=== PATIENT | male | born 1970 | race American Indian/Alaskan Native ===

== ENCOUNTER 2017-01-08 04:58 | Emergency (ER) | payer OTHER ==
[2017-01-08 06:44] LABS: Alanine Aminotransferase 45 units/L (7-56); Albumin 4.4 g/dL (3.9-5); Albumin/Globulin Ratio 1.6 %; Alkaline Phosphatase 80 units/L (35-129); Anion Gap 17 mmol/L; BUN/Creatinine Ratio 14.44; Basophils % (Auto) 0.3 % (0.0-1.8); Bilirubin,Total 0.9 mg/dL (0.1-1.2); Blood Urea Nitrogen 13 mg/dL (9-20); Calcium 9.4 mg/dL (8.4-10.2); Carbon Dioxide 23 mmol/L (22-30); Chloride 97.8 mmol/L (98-107); Eosinophils % (Auto) 7.3 % (0.0-4.3); Glucose 280 mg/dL (75-100); Hematocrit 45.5 % (35.5-45.6); Hemoglobin 15.3 gm/dl (11.8-15.2); Magnesium 1.9 mg/dL (1.7-2.3); Mean Corpuscular HGB Conc 34 % (32-34); Mean Corpuscular Hemoglobin 28 pg (28-32); Mean Corpuscular Volume 82 fl (84-94); Platelet Count 183 K/mm3 (140-440); Red Blood Count 5.52 M/mm3 (3.65-5.03); Red Cell Distribution Width 13.4 % (13.2-15.2); Sodium 134 mmol/L (137-145); Total Protein 7.1 g/dL (6.3-8.2); White Blood Count 7.9 K/mm3 (4.5-11.0)
[2017-01-08 06:47] LABS: Urine Drugs of Abuse Note Disclamer
[2017-01-08 07:09] LABS: Bilirubin,Urine NEG (Negative); Blood,Urine MOD (Negative); Ketones,Urine NEG (Negative); Leukocyte Esterase,Urine NEG (Negative); Mucus,Urine FEW /HPF; Nitrite,Urine NEG (Negative); Protein,Urine <15 mg/dL mg/dL (Negative); Urobilinogen,Urine < 2.0 mg/dL (<2.0); WBC,Urine < 1.0 /HPF (0.0-6.0)
[2017-01-08] MEDS ORDERED: NACL 0.9% 500 ML 500 ML IV ONE (07:30)
--- NOTE | 2017-01-08 07:30 | Emergency Department Report ---
HPI - General Chief Complaint: Altered Mental Status Time Seen by Provider: 01/08/17 07:14 - HPI HPI: This is a 46-year-old -Citizen Of [place] male who presents to the emergency department via EMS from home after the patient had some transient altered mental status. The patient's is bedside and says that she noticed that he woke up making some "strange noises" and he was jerking his body. He appeared as if he was going to follow the bed due to the symptoms so she held him down and made sure he did not fall off the bed. She also called 911 at the same time. The symptoms stopped very quickly after they began and then the patient was just altered/disoriented. By the time EMS got to the house the patient was starting to become more oriented. He got up on his own and went to the bathroom to use the restroom and then came back and started making more sense. Now he just says he feels slightly tired and/or week. He has a past medical history of [id number] diabetes. He's never had any event or set of symptoms before. His primary care doctor is Dr. ana cristina Villa. ED Past Medical Hx - Past Medical History Hx Hypertension: Yes Hx Diabetes: Yes - Surgical History Past Surgical History?: No - Social History Smoking Status: Never Smoker Substance Use Type: None - Medications Home Medications: Home Medications Medication Instructions Recorded Confirmed Last Taken Type Lisinopril [Zestril TAB] 1 tab PO DAILY 01/08/17 01/08/17 Unknown History Tanzeum 50 mg SQ QWEEK 01/08/17 01/08/17 Unknown History metFORMIN 1,500 mg PO DAILY 01/08/17 01/08/17 Unknown History ED Review of Systems ROS: Stated complaint: ALTERED MENTAL STATUS Other details as noted in HPI Comment: All other systems reviewed and negative Constitutional: denies: chills, fever Eyes: denies: eye pain, eye discharge, vision change ENT: denies: ear pain, throat pain Respiratory: denies: cough, shortness of breath, wheezing Cardiovascular: denies: chest pain, palpitations Gastrointestinal: denies: abdominal pain, nausea, diarrhea Genitourinary: denies: urgency, dysuria Musculoskeletal: denies: back pain, joint swelling, arthralgia Skin: denies: rash, lesions Neurological: confusion. denies: numbness Physical Exam - Physical Exam Vital Signs: Vital Signs 01/08/17 05:22 Temperature 97.8 F Pulse Rate 108 H Respiratory 22 Rate Blood Pressure 152/93 Blood Pressure 152/93 [Left] O2 Sat by Pulse 100 Oximetry Physical Exam: GENERAL: The patient is well-developed well-nourished. HEENT: Normocephalic. Atraumatic. Extraocular motions are intact. Patient has moist mucous membranes. Pupils equal reactive to light bilaterally. No nystagmus. NECK: Supple. Trachea is midline. CHEST/LUNGS: Clear to auscultation. There is no respiratory distress noted. HEART/CARDIOVASCULAR: Regular. There is no tachycardia. There is no gallop rub or murmur. ABDOMEN: Abdomen is soft, nontender. Patient has normal bowel sounds. There is no abdominal distention. SKIN: Skin is warm and dry. NEURO: The patient is awake, alert, and oriented. The patient is cooperative. The patient has no focal neurologic deficits. The patient has normal speech and gait. Cranial nerves II through XII grossly intact. MUSCULOSKELETAL: There is no tenderness or deformity. There is no limitation range of motion. There is no evidence of acute injury. Muscle strength 5 out of 5 upper and lower extremities bilaterally. Cap refill less than 2 seconds. ED Course Vital Signs 01/08/17 05:22 Temperature 97.8 F Pulse Rate 108 H Respiratory 22 Rate Blood Pressure 152/93 Blood Pressure 152/93 [Left] O2 Sat by Pulse 100 Oximetry ED Medical Decision Making - Lab Data Result diagrams: 01/08/17 05:52 01/08/17 05:52 - EKG Data -: EKG Interpreted by Ma EKG shows normal: sinus rhythm, axis, intervals, QRS complexes, ST-T waves Rate: tachycardia (110 bpm) - EKG Data When compared to previous EKG there are: previous EKG unavailable Interpretation: normal EKG (with sinus tach at 110 bpm) - Radiology Data Radiology results: report reviewed CT of the head does not show any acute process including no hemorrhage, mass, shift, diffuse edema or skull fracture. - Medical Decision Making 46-year-old male presents the emergency department after he had some witnessed seizure-like activity. He has been awake and alert since being in the emergency department. His only complaint now is some general lightheadedness. There is no focal, motor or sensory deficits. Cranial nerves are intact. Heart lungs are normal to auscultation. EKG shows some mild sinus tachycardia but otherwise no signs of ST elevation NM or dysrhythmia. Since labs and an mostly unremarkable except for a elevated lactic acid level. There is no signs of infection in the blood or urine, electrolyte abnormalities or renal insufficiency. There is some hyperglycemia with a blood sugar of 280 but the patient has not yet taken his oral hyperglycemics today. There is no signs of diabetic ketoacidosis. CT of the head did not show any bleed, shift, mass or any acute process. Patient was seen ambulatory in the emergency department and appears stable. He has good follow-up with a primary care physician and has been given a referral for a local neurologist. He will return to the ER immediately with any recurrence of this seizure-like activity or any acute distress. - Differential Diagnosis Seizure, TIA, Brain bleed, Hypoglycemia, DKA Critical Care Time: No Critical care attestation.: If time is entered above; I have spent that time in minutes in the direct care of this critically ill patient, excluding procedure time. ED Disposition Clinical Impression: Seizure-like activity, Hyperglycemia Disposition: DISCHARGED TO HOME OR SELFCARE Is pt being admited?: No Condition: Stable Instructions: New-Onset Seizure in Adults (ED), Non-epileptic Seizures (ED) Additional Instructions: Please follow-up with your primary care doctor in the next few days. I have also given you a referral for a local neurologist, Dr. Mills, to follow-up regarding your seizure-like activity. Return to the emergency department immediately with any recurrence of this seizure-like activity or any acute distress. Your blood sugar was elevated today. It does not appear to be any of the complications of diabetes at this time. However it is recommended that you stay away from foods that are high in sugar, starches and carbohydrates to try and help with the hyperglycemia. Referrals: PRIMARY CARE, [Primary Care Provider] - 3-5 Days LULU MILLS MD [Staff Physician] - 3-5 Days Time of Disposition: 10:30
--- NOTE | 2017-01-08 08:21 | Cat Scan Report ---
FINAL REPORT EXAM: CT HEAD/BRAIN WO CON HISTORY: AMS, possible seizure TECHNIQUE: Standard unenhanced CT of the head at 5.0 millimeter axial increments. PRIORS: None. FINDINGS: The ventricular system is normal in size and configuration. There is no evidence for parenchymal volume loss. There is no evidence for mass lesion, mass effect, midline shift, acute intracranial hemorrhage, or acute ischemia/ infarction. No evidence for acute skull fracture is seen. No abnormality in the overlying scalp soft tissues is seen. Visualized paranasal sinuses are clear. IMPRESSION: Negative CT of the head. No acute intracranial process noted.
[2017-01-08 10:53] VITALS: BP 146/90
== END 2017-01-08 10:54 | disposition home or self-care (01) ==
LOC: ED 04:58
DX: E11.65 Type 2 diabetes mellitus with hyperglycemia (principal); R56.9 Unspecified convulsions; I10 Essential (primary) hypertension
CPT/HCPCS: 36415; 70450; 80053; 80307; 81001; 82010; 82140; 82805; 82962; 83735; 84443; 85025; 93005; 93010; 96360; 99285; G0480; J7040; 80320

== ENCOUNTER 2017-10-25 17:36 | Inpatient (IN) | payer OTHER ==
--- NOTE | 2017-10-25 17:59 | Emergency Department Report ---
ED Neuro Deficit HPI - General Chief Complaint: Neuro Symptoms/Deficit Stated Complaint: AMS Time Seen by Provider: 10/25/17 17:57 Source: patient, EMS (ems notes not available at time of chart dictation), RN notes reviewed Mode of arrival: Ambulatory Limitations: No Limitations - History of Present Illness Initial Comments: This is a 46-year-old male. The patient is previously unknown to this provider. He is brought to the hospital by EMS for resolved altered mental status. EMS reports patient last seen normal at 4:00 PM today. They reports that the patient's family contacted 911 because he was acting strangely and not talking right. He reports normal fingerstick in the field. They report that patient's mental status and ability to speak improved in the field. Patient was found to have a flutter with variable conduction field, which spontaneously converted to normal sinus rhythm. Patient currently denies headache, neck pain, chest pain, abdominal pain, shortness of breath. He has no recollection of this event. The event is resolved, it did not radiate anywhere, and had no exacerbating or relieving factors. -: Sudden Location: speech Presenting Symptoms: Present: Unable to Speak Clearly, Altered Mental Status History of same: No Place: home Severity: severe Improves With: none Worsens With: none On Anticoagulants: No Context: sudden onset Associated Symptoms: denies: confusion, chest pain, cough, diaphoresis, fever/ chills, loss of appetite, malise, vertigo, seizures, shortness of breath, syncope, weakness - Related Data Home Medications: Home Medications Medication Instructions Recorded Confirmed Last Taken Lisinopril [Zestril TAB] 1 tab PO DAILY 01/08/17 10/26/17 10/25/17 Tanzeum 50 mg SQ QWEEK 01/08/17 10/26/17 10/25/17 metFORMIN 1,500 mg PO DAILY 01/08/17 10/26/17 10/25/17 Previous Rx's Medication Instructions Recorded Last Taken Type Aspirin [Aspirin BABY CHEW TAB] 81 mg PO QDAY 30 Days tab.chew 10/27/17 Unknown Rx Lisinopril [Zestril TAB] 2.5 mg PO QDAY tablet 10/27/17 Unknown Rx metFORMIN [Glucophage] 1,500 mg PO QDDIAB tablet 10/27/17 Unknown Rx Allergies/Adverse Reactions: Allergies Allergy/AdvReac Type Severity Reaction Status Date / Time No Known Allergies Allergy Unverified 01/08/17 05:36 ED Review of Systems ROS: Stated complaint: AMS Other details as noted in HPI Constitutional: denies: fever Eyes: denies: vision change ENT: denies: epistaxis Respiratory: denies: cough Cardiovascular: denies: chest pain Gastrointestinal: denies: abdominal pain Genitourinary: as per HPI Musculoskeletal: as per HPI Skin: as per HPI Neurological: confusion. denies: weakness ED Past Medical Hx - Past Medical History Hx Hypertension: Yes Hx Diabetes: Yes - Social History Smoking Status: Never Smoker Substance Use Type: None - Medications Home Medications: Home Medications Medication Instructions Recorded Confirmed Last Taken Type Lisinopril [Zestril TAB] 1 tab PO DAILY 01/08/17 10/26/17 10/25/17 History Tanzeum 50 mg SQ QWEEK 01/08/17 10/26/17 10/25/17 History metFORMIN 1,500 mg PO DAILY 01/08/17 10/26/17 10/25/17 History Aspirin [Aspirin BABY CHEW TAB] 81 mg PO QDAY 30 Days tab.chew 10/27/17 Unknown Rx Lisinopril [Zestril TAB] 2.5 mg PO QDAY tablet 10/27/17 Unknown Rx metFORMIN [Glucophage] 1,500 mg PO QDDIAB tablet 10/27/17 Unknown Rx ED Neuro Physical Exam - General General appearance: alert, in no apparent distress Suspected Stroke: No - Head Head exam: Present: atraumatic, normocephalic - Eye Eye exam: Present: normal appearance, PERRL, EOMI. Absent: nystagmus Pupils: Present: other (visual acuity intact to finger counting, color perception, reading at a close distance) - ENT ENT exam: Present: normal exam, normal orophraynx, mucous membranes moist, normal external ear exam - Neck Neck exam: Present: normal inspection, full ROM - Respiratory Respiratory exam: Present: normal lung sounds bilaterally. Absent: respiratory distress - Cardiovascular Cardiovascular Exam: Present: normal rhythm, tachycardia, normal heart sounds. Absent: bradycardia, irregular rhythm, systolic murmur, diastolic murmur, rubs, gallop - GI/Abdominal GI/Abdominal exam: Present: soft, normal bowel sounds. Absent: distended, tenderness, guarding, rebound, rigid, pulsatile mass - Rectal Rectal exam: Present: deferred - Extremities Exam Extremities exam: Present: normal inspection, full ROM, normal capillary refill. Absent: pedal edema, joint swelling, calf tenderness - Back Exam Back exam: Present: normal inspection, full ROM. Absent: tenderness, CVA tenderness (R), paraspinal tenderness, vertebral tenderness - Neurological Exam Neurological exam: Present: alert, oriented X3, CN II-XII intact, normal gait, other (Extraocular movements intact. Tongue midline. No facial droop. Facial sensation intact to light touch in the V1, V2, V3 distribution bilaterally. 5 and 5 strength in 4 extremities.. Sensation is intact to light touch in 4 extremities.). Absent: motor sensory deficit - NIHSS Assessment Interval: Baseline 1a. Level of Consciousness: alert 1b. LOC Questions: answers correctly 1c. LOC Commands: performs tasks correctly 2. Best Gaze: normal 3. Visual: no visual loss 4. Facial Palsy: normal symmetrical movement 5b. Motor Arm Right: no drift 5a. Motor Arm Left: no drift 6a. Motor Leg Left: no drift 6b. Motor Leg Right: no drift 7. Limb Ataxia: absent 8. Sensory: normal 9. Best Language: no aphasia 10. Dysarthria: normal 11. Extinction/Inattention: no abnormality Total Score: 0 Stroke Severity: No Stroke Symptoms - Psychiatric Psychiatric exam: Present: normal affect, normal mood - Skin Skin exam: Present: warm, dry, intact, normal color. Absent: rash ED Course Vital Signs 10/25/17 10/25/17 10/25/17 17:52 18:02 18:34 Temperature 97.8 F Pulse Rate 102 H 111 H 109 H Respiratory 23 19 25 H Rate Blood Pressure 128/67 Blood Pressure 128/67 [Left] O2 Sat by Pulse 97 98 96 Oximetry 10/25/17 10/25/17 10/25/17 18:44 19:00 19:30 Temperature Pulse Rate 103 H 95 H Respiratory 24 17 Rate Blood Pressure 128/97 124/82 Blood Pressure [Left] O2 Sat by Pulse 97 96 98 Oximetry 10/25/17 10/25/17 10/25/17 20:00 20:31 21:00 Temperature Pulse Rate 100 H 94 H Respiratory 24 16 Rate Blood Pressure 124/82 124/82 134/92 Blood Pressure [Left] O2 Sat by Pulse 98 90 95 Oximetry 10/25/17 10/25/17 10/25/17 21:31 22:00 22:31 Temperature Pulse Rate 114 H 89 96 H Respiratory 17 26 H 33 H Rate Blood Pressure 134/92 164/90 164/90 Blood Pressure [Left] O2 Sat by Pulse 98 99 97 Oximetry 10/25/17 10/25/17 10/25/17 23:00 23:31 23:39 Temperature Pulse Rate 87 98 H 89 Respiratory 12 18 24 Rate Blood Pressure 140/99 140/99 140/99 Blood Pressure [Left] O2 Sat by Pulse 97 99 98 Oximetry 10/26/17 00:31 Temperature Pulse Rate 92 H Respiratory 13 Rate Blood Pressure 138/89 Blood Pressure [Left] O2 Sat by Pulse 95 Oximetry - Reevaluation(s) Reevaluation #1: 10/25/17 18:19 Differential diagnosis, including when not limited to: Hypoperfusion secondary to arrhythmia, transient ischemic attack, electrolyte derangement, Onel's paralysis, X Assessment and plan: 46-year-old male who has Showed atrial flutter with variable conduction in the field, with resolved speech disturbance and altered mental status. He has a GCS of 15, with an NIH score of 0, is clinically sober , walks with a steady gait, and has an unremarkable neurologic examination. Given current GCS and NIH score, the patient is not a TPA candidate for endovascular candidate. He does not require systemic anticoagulation because he is back in normal sinus. We will obtain basic laboratory studies, CT scan of the brain. X-ray of the chest was unremarkable, patient chronically sober at this time, patient is instructed that he will benefit from admission to the hospital for evaluation for a flutter which may be paroxysmal, and transient ischemic attack. Reevaluation #2: 10/25/17 19:29 Dr. Guajardo, the hospital physician, accepted the patient to the medical service. - Lab Data Result diagrams: 10/25/17 18:08 10/25/17 18:08 Lab Results 10/25/17 10/25/17 10/25/17 Range/Units 18:08 18:08 18:08 WBC 7.2 (4.5-11.0) K/mm3 RBC 5.50 H (3.65-5.03) M/mm3 Hgb 16.3 H (11.8-15.2) gm/dl Hct 46.7 H (35.5-45.6) % MCV 85 (84-94) fl MCH 30 (28-32) pg MCHC 35 H (32-34) % RDW 13.2 (13.2-15.2) % Plt Count 188 (140-440) K/mm3 Lymph % (Auto) 30.5 (13.4-35.0) % Mcdonough % (Auto) 7.0 (0.0-7.3) % Eos % (Auto) 13.1 H (0.0-4.3) % Baso % (Auto) 0.6 (0.0-1.8) % Lymph # 2.2 (1.2-5.4) K/mm3 Mcdonough # 0.5 (0.0-0.8) K/mm3 Eos # 0.9 H (0.0-0.4) K/mm3 Baso # 0.0 (0.0-0.1) K/mm3 Seg Neutrophils % 48.8 (40.0-70.0) % Seg Neutrophils # 3.5 (1.8-7.7) K/mm3 PT 12.5 (12.2-14.9) Sec. INR 0.89 (0.87-1.13) APTT 24.7 (24.2-36.6) Sec. Thrombin Time 17.0 (15.1-19.6) Sec. Sodium (137-145) mmol/L Potassium (3.6-5.0) mmol/L Chloride (98-107) mmol/L Carbon Dioxide (22-30) mmol/L Anion Gap mmol/L BUN (9-20) mg/dL Creatinine (0.8-1.5) mg/dL Estimated GFR ml/min BUN/Creatinine Ratio % Glucose (75-100) mg/dL Calcium (8.4-10.2) mg/dL Magnesium (1.7-2.3) mg/dL Total Bilirubin (0.1-1.2) mg/dL AST (5-40) units/L ALT (7-56) units/L Alkaline Phosphatase (35-129) units/L Total Creatine Kinase 165 (55-170) units/L CK-MB (CK-2) 2.4 (0.0-4.0) ng/mL CK-MB (CK-2) Rel Index 1.4 (0-4) Troponin T < 0.010 (0.00-0.029) ng/mL Total Protein (6.3-8.2) g/dL Albumin (3.9-5) g/dL Albumin/Globulin Ratio % TSH (0.270-4.200) mlU/mL Free T4 (0.76-1.46) ng/dL Salicylates (2.8-20.0) mg/dL Acetaminophen (10.0-30.0) ug/mL Plasma/Serum Alcohol (0-0.07) gm% 10/25/17 10/25/17 10/25/17 Range/Units 18:08 18:08 18:08 WBC (4.5-11.0) K/mm3 RBC (3.65-5.03) M/mm3 Hgb (11.8-15.2) gm/dl Hct (35.5-45.6) % MCV (84-94) fl MCH (28-32) pg MCHC (32-34) % RDW (13.2-15.2) % Plt Count (140-440) K/mm3 Lymph % (Auto) (13.4-35.0) % Mcdonough % (Auto) (0.0-7.3) % Eos % (Auto) (0.0-4.3) % Baso % (Auto) (0.0-1.8) % Lymph # (1.2-5.4) K/mm3 Mcdonough # (0.0-0.8) K/mm3 Eos # (0.0-0.4) K/mm3 Baso # (0.0-0.1) K/mm3 Seg Neutrophils % (40.0-70.0) % Seg Neutrophils # (1.8-7.7) K/mm3 PT (12.2-14.9) Sec. INR (0.87-1.13) APTT (24.2-36.6) Sec. Thrombin Time (15.1-19.6) Sec. Sodium 136 L (137-145) mmol/L Potassium 4.5 (3.6-5.0) mmol/L Chloride 91.6 L (98-107) mmol/L Carbon Dioxide 23 (22-30) mmol/L Anion Gap 26 mmol/L BUN 13 (9-20) mg/dL Creatinine 1.1 (0.8-1.5) mg/dL Estimated GFR > 60 ml/min BUN/Creatinine Ratio 12 % Glucose 372 H (75-100) mg/dL Calcium 10.4 H (8.4-10.2) mg/dL Magnesium 2.00 (1.7-2.3) mg/dL Total Bilirubin 0.80 (0.1-1.2) mg/dL AST < 5 L (5-40) units/L ALT 61 H (7-56) units/L Alkaline Phosphatase 109 (35-129) units/L Total Creatine Kinase 165 (55-170) units/L CK-MB (CK-2) (0.0-4.0) ng/mL CK-MB (CK-2) Rel Index (0-4) Troponin T (0.00-0.029) ng/mL Total Protein 7.5 (6.3-8.2) g/dL Albumin 4.6 (3.9-5) g/dL Albumin/Globulin Ratio 1.6 % TSH 2.460 (0.270-4.200) mlU/mL Free T4 1.54 H (0.76-1.46) ng/dL Salicylates (2.8-20.0) mg/dL Acetaminophen (10.0-30.0) ug/mL Plasma/Serum Alcohol (0-0.07) gm% 10/25/17 10/25/17 10/25/17 Range/Units 18:08 18:08 18:08 WBC (4.5-11.0) K/mm3 RBC (3.65-5.03) M/mm3 Hgb (11.8-15.2) gm/dl Hct (35.5-45.6) % MCV (84-94) fl MCH (28-32) pg MCHC (32-34) % RDW (13.2-15.2) % Plt Count (140-440) K/mm3 Lymph % (Auto) (13.4-35.0) % Mcdonough % (Auto) (0.0-7.3) % Eos % (Auto) (0.0-4.3) % Baso % (Auto) (0.0-1.8) % Lymph # (1.2-5.4) K/mm3 Mcdonough # (0.0-0.8) K/mm3 Eos # (0.0-0.4) K/mm3 Baso # (0.0-0.1) K/mm3 Seg Neutrophils % (40.0-70.0) % Seg Neutrophils # (1.8-7.7) K/mm3 PT (12.2-14.9) Sec. INR (0.87-1.13) APTT (24.2-36.6) Sec. Thrombin Time (15.1-19.6) Sec. Sodium (137-145) mmol/L Potassium (3.6-5.0) mmol/L Chloride (98-107) mmol/L Carbon Dioxide (22-30) mmol/L Anion Gap mmol/L BUN (9-20) mg/dL Creatinine (0.8-1.5) mg/dL Estimated GFR ml/min BUN/Creatinine Ratio % Glucose (75-100) mg/dL Calcium (8.4-10.2) mg/dL Magnesium (1.7-2.3) mg/dL Total Bilirubin (0.1-1.2) mg/dL AST (5-40) units/L ALT (7-56) units/L Alkaline Phosphatase (35-129) units/L Total Creatine Kinase (55-170) units/L CK-MB (CK-2) (0.0-4.0) ng/mL CK-MB (CK-2) Rel Index (0-4) Troponin T (0.00-0.029) ng/mL Total Protein (6.3-8.2) g/dL Albumin (3.9-5) g/dL Albumin/Globulin Ratio % TSH (0.270-4.200) mlU/mL Free T4 (0.76-1.46) ng/dL Salicylates < 0.3 L (2.8-20.0) mg/dL Acetaminophen < 15.0 (10.0-30.0) ug/mL Plasma/Serum Alcohol < 0.01 (0-0.07) gm% - EKG Data -: EKG Interpreted by Me Rate: tachycardia 10/25/17 18:21 Sinus tachycardia, 109 bpm, normal axis, normal intervals, not morphologically consistent with ST elevation myocardial infarction - Radiology Data Radiology results: pending, report reviewed, image reviewed Received call from radiology, Dr. Joseph Parrish, who has personally interpreted the patient's CT scan of the brain, and has interpreted as negative for intracranial hemorrhage or acute findings. Chronic ischemic changes noted. - Core Measures Measure Exclusions: not indicated - Thrombolytic Inclusion/Exclusion Thrombolytic Contraindications: Rapidily Improving s/s Critical care attestation.: If time is entered above; I have spent that time in minutes in the direct care of this critically ill patient, excluding procedure time. ED Disposition Clinical Impression: TIA (transient ischemic attack), Paroxysmal atrial flutter Disposition: [id number] OP ADMIT IP TO THIS HOSP Is pt being admited?: Yes Does the pt Need Aspirin: Yes Condition: Good
[2017-10-25 18:40] LABS: Basophils % (Auto) 0.6 % (0.0-1.8); Eosinophils # (Auto) 0.9 K/mm3 (0.0-0.4); Eosinophils % (Auto) 13.1 % (0.0-4.3); Hematocrit 46.7 % (35.5-45.6); Hemoglobin 16.3 gm/dl (11.8-15.2); Lymphocytes # (Auto) 2.2 K/mm3 (1.2-5.4); Lymphocytes % (Auto) 30.5 % (13.4-35.0); Mean Corpuscular HGB Conc 35 % (32-34); Mean Corpuscular Hemoglobin 30 pg (28-32); Mean Corpuscular Volume 85 fl (84-94); Monocytes # (Auto) 0.5 K/mm3 (0.0-0.8); Platelet Count 188 K/mm3 (140-440); Red Cell Distribution Width 13.2 % (13.2-15.2)
[2017-10-25 18:51] LABS: INR 0.89 (0.87-1.13)
[2017-10-25 18:52] LABS: Partial Thromboplastin Time 24.7 Sec. (24.2-36.6)
[2017-10-25 18:57] LABS: Albumin 4.6 g/dL (3.9-5); BUN/Creatinine Ratio 12; Blood Urea Nitrogen 13 mg/dL (9-20); Calcium 10.4 mg/dL (8.4-10.2); Hemolysis Index 75
[2017-10-25 19:09] LABS: Alanine Aminotransferase 61 units/L (7-56)
[2017-10-25] MEDS ORDERED: BABY ASPIRIN PO ONE (19:30)
[2017-10-25 19:36] LABS: Creatine Kinase MB 2.4 ng/mL (0.0-4.0)
[2017-10-25] MEDS ORDERED: DULCOLAX PR PRN (22:31)
[2017-10-25] MEDS ORDERED: SODIUM CHLORIDE FLUSH SYRINGE 10 ML IV PRN (22:31)
[2017-10-25] MEDS ORDERED: ZOFRAN IV PRN (22:31)
[2017-10-25] MEDS ORDERED: MILK OF MAGNESIA PO PRN (22:31)
[2017-10-25] MEDS ORDERED: TYLENOL PO PRN (22:31)
[2017-10-25] MEDS ORDERED: APRESOLINE IV PRN (22:31)
--- NOTE | 2017-10-25 22:34 | History and Physical Report ---
History of Present Illness Date of examination: 10/25/17 History of present illness: Family urinary history of hypertension, diabetes woke up from sleep screaming, shaking his upper body and was confused. The brother at bedside reported that EMS told him that his speech was slurred in the ambulance. The patient is now back to baseline, brother at bedside state that he had the same episode a year ago. He was seen by neurology and had a complete workup, all tests were negative Review Of Systems: Constitutional: no weight loss Ears, eyes, nose, mouth and throat: no nasal congestion, no nasal discharge, no sinus pressure, blurry vision, diplopia Neck: No neck pain or rigidity. Cardiovascular: No chest pain, palpitations Respiratory: No shortness of breath, cough Gastrointestinal: No abdominal pain, hematochezia Genitourinary : no dysuria, frequency , hematuria Musculoskeletal: no muscle ache Integumentary: no rash, no pruritis Neurological: no parathesias, focal weakness Endocrine: no cold or heat intolerance, no polyuria or polydipsia Hematologic/Lymphatic: no easy bruising, no easy bleeding, no gland swelling Allergic/Immunologic: no urticaria, no angioedema. PAST MEDICAL HISTORY:hypertension, diabetes PAST SURGICAL HISTORY: None FAMILY HISTORY:hypertension, diabetes SOCIAL HISTORY: Denies alcohol, tobacco, drugs Medications and Allergies Allergies Allergy/AdvReac Type Severity Reaction Status Date / Time No Known Allergies Allergy Unverified 01/08/17 05:36 Home Medications Medication Instructions Recorded Confirmed Last Taken Type Lisinopril [Zestril TAB] 1 tab PO DAILY 01/08/17 01/08/17 Unknown History Tanzeum 50 mg SQ QWEEK 01/08/17 01/08/17 Unknown History metFORMIN 1,500 mg PO DAILY 01/08/17 01/08/17 Unknown History Exam - Physical Exam Narrative exam: Gen. appearance: Patient lying in bed in no acute distress HEENT: Normocephalic/atraumatic, pupils equal round reactive to light, extra occular movement intact, no scleral icterus, no JVD or thyromegaly or nodule, neck is supple, mucous membrane moist, no erythema or exudate Heart: S1-S2, regular rate and rhythm Lungs: Clear to auscultation bilateral breathing comfortable Abdomen: Positive bowel sounds, nontender, nondistended, no organomegaly Extremities: No edema, cyanosis, clubbing Neuro:: Oriented 3 , cranial nerves II-12 intact, speech, motor intact Skin: No rash, nodules, warm dry - Constitutional Vitals: Temp Pulse Resp BP Pulse Ox 97.8 F 102 H 23 128/67 97 10/25/17 17:52 10/25/17 17:52 10/25/17 17:52 10/25/17 17:52 10/25/17 18:44 Results - Labs CBC & Chem 7: 10/25/17 18:08 10/25/17 18:08 Labs: Abnormal lab results 10/25/17 10/25/17 10/25/17 Range/Units 18:08 18:08 18:08 RBC 5.50 H (3.65-5.03) M/mm3 Hgb 16.3 H (11.8-15.2) gm/dl Hct 46.7 H (35.5-45.6) % MCHC 35 H (32-34) % Eos % (Auto) 13.1 H (0.0-4.3) % Eos # 0.9 H (0.0-0.4) K/mm3 Sodium 136 L (137-145) mmol/L Chloride 91.6 L (98-107) mmol/L Glucose 372 H (75-100) mg/dL Calcium 10.4 H (8.4-10.2) mg/dL AST < 5 L (5-40) units/L ALT 61 H (7-56) units/L Free T4 1.54 H (0.76-1.46) ng/dL Salicylates (2.8-20.0) mg/dL 10/25/17 Range/Units 18:08 RBC (3.65-5.03) M/mm3 Hgb (11.8-15.2) gm/dl Hct (35.5-45.6) % MCHC (32-34) % Eos % (Auto) (0.0-4.3) % Eos # (0.0-0.4) K/mm3 Sodium (137-145) mmol/L Chloride (98-107) mmol/L Glucose (75-100) mg/dL Calcium (8.4-10.2) mg/dL AST (5-40) units/L ALT (7-56) units/L Free T4 (0.76-1.46) ng/dL Salicylates < 0.3 L (2.8-20.0) mg/dL - Imaging and Cardiology EKG: image reviewed Chest x-ray: image reviewed CT Scan - head: image reviewed Assessment and Plan Assessment TIA Hypertension Diabetes Plan Admit to medicine Due to neurochecks, as well as a Obtain MRI of the head, carotid Doppler, echo Start aspirin, statin consult neurology, physical and occupational therapy Check fingersticks and initiate insulin sliding scale DVT prophylaxis
[2017-10-25 23:17] LABS: Bilirubin,Urine NEG (Negative); Blood,Urine MOD (Negative); Color,Urine Straw (Yellow); Nitrite,Urine NEG (Negative); Protein,Urine <15 mg/dL mg/dL (Negative); Urobilinogen,Urine < 2.0 mg/dL (<2.0)
[2017-10-25 23:18] LABS: Amphetamine Screen,Urine PRESUMPTIVE NEGATIVE; Benzodiazepines Screen,Urine PRESUMPTIVE NEGATIVE; Cannabinoid Screen,Urine PRESUMPTIVE NEGATIVE; Cocaine Screen,Urine PRESUMPTIVE NEGATIVE; Methadone Screen,Urine PRESUMPTIVE NEGATIVE; Opiate Screen,Urine PRESUMPTIVE NEGATIVE
--- NOTE | 2017-10-26 05:17 | Cat Scan Report ---
FINAL REPORT EXAM: CT HEAD/BRAIN WO CON HISTORY: suspected stroke TECHNIQUE: CT of the head was performed. No intravenous contrast was administered. PRIORS: 01/08/2017 FINDINGS: There is no evidence of intracranial hemorrhage. There is no edema, mass effect or midline shift. There are no abnormal extra-axial fluid collections. The ventricles are appropriate for brain volume. There is no skull fracture seen. Mildly hyperdense 3 cm masslike area in the sphenoid sinus seen which could be a mucocele although other sinus mass not excluded. This is a new finding as compared to the prior CT. . IMPRESSION: There is a 3 cm mildly hyperdense masslike area in the upper sphenoid sinus which is new since the prior CT. This could be a mucocele although other sinus mass including solid mass not excluded. There is otherwise no acute intracranial abnormality identified.
[2017-10-26 07:07] LABS: Creatine Kinase MB 3.7 ng/mL (0.0-4.0)
[2017-10-26 07:13] LABS: Chol/HDL Ratio 5.54 %
--- NOTE | 2017-10-26 07:47 | Progress Note ---
Assessment and Plan Assessment and plan: Patient is a 46 years old with past medical history of hypertension, and diabetes woke up from sleep screaming, shaking his upper body and was confused and slurred speech. Transient ischemic attack No TPA candidate given patient symptoms resolved CT of the head shows no acute stroke or hemorrhage. MRI of the brain pending VL carotid pending Echocardiogram pending Continue on aspirin Continue on statins Frequent neuro checks. Neurology consult Physical therapy/occupational therapy on board. Supportive care Sphenoid Mass CT of the head showed 3 cm mildly hyperdense mass like area in the upper sphenoid MRI recommended MRI of the brain is pending Confused and slurred speech Resolved Hypertensive urgency/emergency Continue home antihypertensive medication. Gently IV hydralazine for SBP> 160 Closely monitor blood pressure Diabetes mellitus Accu-Chek before meals and at bedtime works on sliding scale insulin/Novolog Rhabdomyolysis/dehydration Started on IV fluids Closely monitor CK Hyperlipidemia Started on antilipid agents Discussed about the importance of physical exercise, low fat diet, reducing intake of high fluid fat foods to improve Cardiovascular disease DVT prophylaxis Lovenox cross History Interval history: Patient denies numbness, double vision, slurred speech or headache. Labs and nursing notes reviewed. Hospitalist Physical - Constitutional Vitals: Temp Pulse Resp BP Pulse Ox 98.6 F 97 H 22 141/88 96 10/26/17 04:34 10/26/17 04:34 10/26/17 04:34 10/26/17 04:34 10/26/17 04:34 General appearance: Present: no acute distress - EENT Eyes: Present: PERRL ENT: hearing intact - Neck Neck: Present: supple - Respiratory Respiratory effort: normal Respiratory: bilateral: CTA - Cardiovascular Rhythm: regular Heart Sounds: Present: S1 & S2 - Abdominal General gastrointestinal: soft, non-tender - Integumentary Integumentary: Present: clear, warm, dry - Psychiatric Psychiatric: appropriate mood/affect - Neurologic Neurologic: moves all extremities - Allied Health Allied health notes reviewed: nursing Results - Labs CBC & Chem 7: 10/25/17 18:08 10/25/17 18:08 Labs: Laboratory Last Values WBC 7.2 K/mm3 (4.5-11.0) 10/25/17 18:08 RBC 5.50 M/mm3 (3.65-5.03) H 10/25/17 18:08 Hgb 16.3 gm/dl (11.8-15.2) H 10/25/17 18:08 Hct 46.7 % (35.5-45.6) H 10/25/17 18:08 MCV 85 fl (84-94) 10/25/17 18:08 MCH 30 pg (28-32) 10/25/17 18:08 MCHC 35 % (32-34) H 10/25/17 18:08 RDW 13.2 % (13.2-15.2) 10/25/17 18:08 Plt Count 188 K/mm3 (140-440) 10/25/17 18:08 Lymph % (Auto) 30.5 % (13.4-35.0) 10/25/17 18:08 [place] % (Auto) 7.0 % (0.0-7.3) 10/25/17 18:08 Eos % (Auto) 13.1 % (0.0-4.3) H 10/25/17 18:08 Baso % (Auto) 0.6 % (0.0-1.8) 10/25/17 18:08 Lymph # 2.2 K/mm3 (1.2-5.4) 10/25/17 18:08 [place] # 0.5 K/mm3 (0.0-0.8) 10/25/17 18:08 Eos # 0.9 K/mm3 (0.0-0.4) H 10/25/17 18:08 Baso # 0.0 K/mm3 (0.0-0.1) 10/25/17 18:08 Seg Neutrophils % 48.8 % (40.0-70.0) 10/25/17 18:08 Seg Neutrophils # 3.5 K/mm3 (1.8-7.7) 10/25/17 18:08 PT 12.5 Sec. (12.2-14.9) 10/25/17 18:08 INR 0.89 (0.87-1.13) 10/25/17 18:08 APTT 24.7 Sec. (24.2-36.6) 10/25/17 18:08 Thrombin Time 17.0 Sec. (15.1-19.6) 10/25/17 18:08 Sodium 136 mmol/L (137-145) L 01/02/18 18:08 Potassium 4.5 mmol/L (3.6-5.0) 10/25/17 18:08 Chloride 91.6 mmol/L (98-107) L 10/25/17 18:08 Carbon Dioxide 23 mmol/L (22-30) 10/25/17 18:08 Anion Gap 26 mmol/L 10/25/17 18:08 BUN 13 mg/dL (9-20) 10/25/17 18:08 Creatinine 1.1 mg/dL (0.8-1.5) 10/25/17 18:08 Estimated GFR > 60 ml/min 10/25/17 18:08 BUN/Creatinine Ratio 12 % 10/25/17 18:08 Glucose 372 mg/dL (75-100) H 10/25/17 18:08 POC Glucose 268 (70-105) H 10/26/17 01:03 Calcium 10.4 mg/dL (8.4-10.2) H 10/25/17 18:08 Magnesium 2.00 mg/dL (1.7-2.3) 10/25/17 18:08 Total Bilirubin 0.80 mg/dL (0.1-1.2) 10/25/17 18:08 AST < 5 units/L (5-40) L 10/25/17 18:08 ALT 61 units/L (7-56) H 10/25/17 18:08 Alkaline Phosphatase 109 units/L (35-129) 10/25/17 18:08 Total Creatine Kinase 948 units/L (55-170) H 10/26/17 05:45 CK-MB (CK-2) 3.7 ng/mL (0.0-4.0) 10/26/17 05:45 CK-MB (CK-2) Rel Index 0.3 (0-4) 10/26/17 05:45 Troponin T < 0.010 ng/mL (0.00-0.029) 10/26/17 05:45 Total Protein 7.5 g/dL (6.3-8.2) 10/25/17 18:08 Albumin 4.6 g/dL (3.9-5) 10/25/17 18:08 Albumin/Globulin Ratio 1.6 % 10/25/17 18:08 Triglycerides 364 mg/dL (2-149) H 10/26/17 05:45 Cholesterol 122 mg/dL (50-199) 10/26/17 05:45 LDL Cholesterol Direct 28 mg/dL (50-130) L 10/26/17 05:45 HDL Cholesterol 22 mg/dL (40-59) L 10/26/17 05:45 Cholesterol/HDL Ratio 5.54 % 10/26/17 05:45 TSH 2.460 mlU/mL (0.270-4.200) 10/25/17 18:08 Free T4 1.54 ng/dL (0.76-1.46) H 10/25/17 18:08 Urine Color Straw (Yellow) 10/25/17 22:35 Urine Turbidity Clear (Clear) 10/25/17 22:35 Urine pH 5.0 (5.0-7.0) 10/25/17 22:35 Ur Specific [place] 1.014 (1.003-1.030) 10/25/17 22:35 Urine Protein <15 mg/dl mg/dL (Negative) 10/25/17 22:35 Urine Glucose (UA) >=500 mg/dL (Negative) 10/25/17 22:35 Urine Ketones Neg mg/dL (Negative) 10/25/17 22:35 Urine Blood Mod (Negative) 10/25/17 22:35 Urine Nitrite Neg (Negative) 10/25/17 22:35 Urine Bilirubin Neg (Negative) 10/25/17 22:35 Urine Urobilinogen < 2.0 mg/dL (<2.0) 10/25/17 22:35 Ur Leukocyte Esterase Neg (Negative) 10/25/17 22:35 Urine WBC (Auto) 1.0 /HPF (0.0-6.0) 10/25/17 22:35 Urine RBC (Auto) 1.0 /HPF (0.0-6.0) 10/25/17 22:35 Salicylates < 0.3 mg/dL (2.8-20.0) L 10/25/17 18:08 Urine Opiates Screen Presumptive negative 10/25/17 22:35 Urine Methadone Screen Presumptive negative 10/25/17 22:35 Acetaminophen < 15.0 ug/mL (10.0-30.0) 10/25/17 18:08 Ur Barbiturates Screen Presumptive negative 10/25/17 22:35 Ur Phencyclidine Scrn Presumptive negative 10/25/17 22:35 Ur Amphetamines Screen Presumptive negative 10/25/17 22:35 U Benzodiazepines Scrn Presumptive negative 10/25/17 22:35 Urine Cocaine Screen Presumptive negative 10/25/17 22:35 U Marijuana (THC) Screen Presumptive negative 10/25/17 22:35 Drugs of Abuse Note Disclamer 10/25/17 22:35 Plasma/Serum Alcohol < 0.01 gm% (0-0.07) 10/25/17 18:08
--- NOTE | 2017-10-26 08:57 | XRay Report ---
FINAL REPORT EXAM: XR CHEST 1V AP HISTORY: tachycardia cva TECHNIQUE: Chest, portable PRIORS: None. FINDINGS: The heart size is normal. Pulmonary vasculature is not congested. The lungs are clear. There are no pleural effusion seen. There is no evidence of pneumothorax. IMPRESSION: There is no acute abnormality identified.
[2017-10-26] MEDS: LOVENOX SUB-Q SCH (10:13)
[2017-10-26] MEDS: ASPIRIN PO SCH (10:13)
[2017-10-26] MEDS ORDERED: Fluarix Quad 2017-2018(36 MOS+ IM ONE (12:00)
--- NOTE | 2017-10-26 12:09 | Magnetic Resonance Report ---
MRI of the brain without contrast. History: Stroke. Procedure: Routine brain protocol without contrast. Findings: The posterior fossa is normal. The ventricles are normal in size and contour. The jeter-white matter junction is normal. There is no restricted diffusion. There are no intra-axial masses or extra-axial collections. The pituitary gland is normal. There is a soft tissue mass in the superior sphenoid sinus measuring 2.6 x 3.2 x 1.7 cm. The margins are smooth. The signal characteristics are intermediate on all sequences. The remaining visualized extrarenal structures are normal. Impression: 1. No intracranial abnormalities. 2. Sphenoid sinus mass. Differential considerations include a neoplastic mass or mucocele although the MR characteristics are not typical of a mucocele. Repeat MRI with contrast may be useful in better characterizing the mass.
--- NOTE | 2017-10-26 13:19 | Consultation ---
History of Present Illness Consult date: 10/26/17 History of present illness: I went over the [facility] personally with [facility] off the computer screen there is mass near the pituitary very unusual configuration this is fly finding as it was not there several months ago could be colloid cyst or cholesteotoma I really doubt malignant lesion but will study the history deserves further w/u with contrast scan to see if contrasted image helps plan hormone studies Medications and Allergies Allergies Allergy/AdvReac Type Severity Reaction Status Date / Time No Known Allergies Allergy Unverified 01/08/17 05:36 Home Medications Medication Instructions Recorded Confirmed Last Taken Type Lisinopril [Zestril TAB] 1 tab PO DAILY 01/08/17 10/26/17 10/25/17 History Tanzeum 50 mg SQ QWEEK 01/08/17 10/26/17 10/25/17 History metFORMIN 1,500 mg PO DAILY 01/08/17 10/26/17 10/25/17 History Active Meds: Active Medications Acetaminophen (Tylenol) 650 mg PO Q4H PRN PRN Reason: Pain, Mild (1-3) Aspirin (Aspirin) 325 mg PO QDAY VINCENT Last Admin: 10/26/17 10:13 Dose: 325 mg Bisacodyl (Dulcolax) 10 mg [place] QDAY PRN PRN Reason: Constipation Dextrose (D50w (25gm) Syringe) 50 ml IV PRN PRN PRN Reason: Hypoglycemia Enoxaparin Sodium (Lovenox) 40 mg SUB-Q QDAY VINCENT Last Admin: 10/26/17 10:13 Dose: Not Given Hydralazine HCl (Apresoline) 5 mg IV Q6H PRN PRN Reason: Keep SBP between 160-185 mm Hg Sodium Chloride (Nacl 0.9% 1000 Ml) 1,000 mls @ 100 mls/hr IV DIRECT VINCENT Insulin Aspart (Novolog) 0 units SUB-Q AC VINCENT PRN Reason: Protocol Insulin Aspart (Novolog) 0 units SUB-Q QHS VINCENT PRN Reason: Protocol Magnesium Hydroxide (Milk Of Magnesia) 30 ml PO Q4H PRN PRN Reason: Constipation Miscellaneous Medication (Lisinopril [Zestril Tab]) 1 tab PO DAILY VINCENT Miscellaneous Medication (Metformin) 1,500 mg PO DAILY VINCENT Miscellaneous Medication (Tanzeum) 50 mg SQ QWEEK VINCENT Ondansetron HCl (Zofran) 4 mg IV Q8H PRN PRN Reason: N/V unrelieved by Reglan Pravastatin Sodium (Pravachol) 20 mg PO QHS VINCENT Sodium Chloride (Sodium Chloride Flush Syringe 10 Ml) 10 ml IV PRN PRN PRN Reason: LINE FLUSH Physical Examination - Vital Signs Vital Signs: Vital Signs Temp Pulse Resp BP Pulse Ox 97.8 F 102 H 23 128/67 97 10/25/17 17:52 10/25/17 17:52 10/25/17 17:52 10/25/17 17:52 10/25/17 17:52 Results - Laboratory Findings CBC and BMP: 10/25/17 18:08 10/25/17 18:08 Abnormal Lab Findings: Abnormal Labs 10/25/17 10/25/17 10/25/17 18:08 18:08 18:08 RBC 5.50 H Hgb 16.3 H Hct 46.7 H MCHC 35 H Eos % (Auto) 13.1 H Eos # 0.9 H Sodium 136 L Chloride 91.6 L Glucose 372 H POC Glucose Calcium 10.4 H AST < 5 L ALT 61 H Total Creatine Kinase Triglycerides LDL Cholesterol Direct HDL Cholesterol Free T4 1.54 H Salicylates 10/25/17 10/25/17 10/26/17 18:08 22:50 01:03 RBC Hgb Hct MCHC Eos % (Auto) Eos # Sodium Chloride Glucose POC Glucose 268 H Calcium AST ALT Total Creatine Kinase 530 H Triglycerides LDL Cholesterol Direct HDL Cholesterol Free T4 Salicylates < 0.3 L 10/26/17 10/26/17 05:45 05:45 RBC Hgb Hct MCHC Eos % (Auto) Eos # Sodium Chloride Glucose POC Glucose Calcium AST ALT Total Creatine Kinase 948 H Triglycerides 364 H LDL Cholesterol Direct 28 L HDL Cholesterol 22 L Free T4 Salicylates
[2017-10-26] MEDS ORDERED: D50W (25GM) Syringe IV PRN (14:07)
[2017-10-26] MEDS: ZESTRIL PO SCH (17:15)
[2017-10-26] MEDS: NOVOLOG SUB-Q SCH (17:15)
[2017-10-26] MEDS: NACL 0.9% 1000 ML 1,000 ML IV SCH (17:25)
[2017-10-26] MEDS ORDERED: PRAVACHOL PO SCH (22:00)
[2017-10-26] MEDS ORDERED: NOVOLOG SUB-Q SCH (22:00)
[2017-10-27] MEDS: NACL 0.9% 1000 ML 1,000 ML IV SCH (03:51)
[2017-10-27 06:02] VITALS: BP 138/92
[2017-10-27] MEDS: NOVOLOG SUB-Q SCH ×2 (07:51→12:51)
[2017-10-27] MEDS ORDERED: GLUCOPHAGE PO SCH (08:00)
[2017-10-27] MEDS ORDERED: LISINOPRIL PO SCH (10:00)
[2017-10-27] MEDS ORDERED: METFORMIN 1500 MG PO SCH (10:00)
[2017-10-27] MEDS: ASPIRIN PO SCH (10:46)
[2017-10-27] MEDS: LOVENOX SUB-Q SCH (10:46)
[2017-10-27] MEDS: ZESTRIL PO SCH (10:46)
--- NOTE | 2017-10-27 12:40 | Progress Note ---
Assessment and Plan Assessment and plan: Patient is a 46 years old with past medical history of hypertension, and diabetes woke up from sleep screaming, shaking his upper body and was confused and slurred speech. Transient ischemic attack No TPA candidate given patient symptoms resolved CT of the head shows no acute stroke or hemorrhage. MRI of the brain without contrast shows neoplastic mass and recommended contrast MRI MRI of the brain with contrast further w/u awaiting for the findings VL carotid unremarkable Echocardiogram ef of 55%-60 % with normal LV Continue on aspirin Continue on statins Frequent neuro checks. Neurology consult Physical therapy/occupational therapy on board. Supportive care Sphenoid Mass CT of the head showed 3 cm mildly hyperdense mass like area in the upper sphenoid MRI recommended MRI of the brain is pending Confused and slurred speech Resolved Hypertensive urgency/emergency Continue home antihypertensive medication. Gently IV hydralazine for SBP> 160 Closely monitor blood pressure Diabetes mellitus Accu-Chek before meals and at bedtime works on sliding scale insulin/Novolog Rhabdomyolysis/dehydration Started on IV fluids Closely monitor CK Hyperlipidemia Started on antilipid agents Discussed about the importance of physical exercise, low fat diet, reducing intake of high fluid fat foods to improve Cardiovascular disease DVT prophylaxis Lovenox History Interval history: Patient denies numbness, double vision, slurred speech or headache. Labs and nursing notes reviewed. Hospitalist Physical - Constitutional Vitals: Temp Pulse Resp BP Pulse Ox 98.6 F 90 18 138/92 96 10/27/17 04:48 10/27/17 07:00 10/27/17 04:48 10/27/17 04:48 10/27/17 04:48 General appearance: Present: no acute distress - EENT Eyes: Present: PERRL ENT: hearing intact - Neck Neck: Present: supple - Respiratory Respiratory effort: normal Respiratory: bilateral: CTA - Cardiovascular Rhythm: regular Heart Sounds: Present: S1 & S2 - Abdominal General gastrointestinal: soft, non-tender - Integumentary Integumentary: Present: clear, warm, dry - Psychiatric Psychiatric: appropriate mood/affect - Neurologic Neurologic: moves all extremities - Allied Health Allied health notes reviewed: nursing Results - Labs CBC & Chem 7: 10/25/17 18:08 10/25/17 18:08 Labs: Laboratory Last Values WBC 7.2 K/mm3 (4.5-11.0) 10/25/17 18:08 RBC 5.50 M/mm3 (3.65-5.03) H 10/25/17 18:08 Hgb 16.3 gm/dl (11.8-15.2) H 10/25/17 18:08 Hct 46.7 % (35.5-45.6) H 10/25/17 18:08 MCV 85 fl (84-94) 10/25/17 18:08 MCH 30 pg (28-32) 10/25/17 18:08 MCHC 35 % (32-34) H 10/25/17 18:08 RDW 13.2 % (13.2-15.2) 10/25/17 18:08 Plt Count 188 K/mm3 (140-440) 10/25/17 18:08 Lymph % (Auto) 30.5 % (13.4-35.0) 10/25/17 18:08 [place] % (Auto) 7.0 % (0.0-7.3) 10/25/17 18:08 Eos % (Auto) 13.1 % (0.0-4.3) H 10/25/17 18:08 Baso % (Auto) 0.6 % (0.0-1.8) 10/25/17 18:08 Lymph # 2.2 K/mm3 (1.2-5.4) 10/25/17 18:08 [place] # 0.5 K/mm3 (0.0-0.8) 10/25/17 18:08 Eos # 0.9 K/mm3 (0.0-0.4) H 10/25/17 18:08 Baso # 0.0 K/mm3 (0.0-0.1) 10/25/17 18:08 Seg Neutrophils % 48.8 % (40.0-70.0) 10/25/17 18:08 Seg Neutrophils # 3.5 K/mm3 (1.8-7.7) 10/25/17 18:08 PT 12.5 Sec. (12.2-14.9) 10/25/17 18:08 INR 0.89 (0.87-1.13) 10/25/17 18:08 APTT 24.7 Sec. (24.2-36.6) 10/25/17 18:08 Thrombin Time 17.0 Sec. (15.1-19.6) 10/25/17 18:08 Sodium 136 mmol/L (137-145) L 10/25/17 18:08 Potassium 4.5 mmol/L (3.6-5.0) 10/25/17 18:08 Chloride 91.6 mmol/L (98-107) L 10/25/17 18:08 Carbon Dioxide 23 mmol/L (22-30) 10/25/17 18:08 Anion Gap 26 mmol/L 10/25/17 18:08 BUN 13 mg/dL (9-20) 10/25/17 18:08 Creatinine 1.1 mg/dL (0.8-1.5) 10/25/17 18:08 Estimated GFR > 60 ml/min 10/25/17 18:08 BUN/Creatinine Ratio 12 % 10/25/17 18:08 Glucose 372 mg/dL (75-100) H 10/25/17 18:08 POC Glucose 244 (70-105) H 10/26/17 21:09 Calcium 10.4 mg/dL (8.4-10.2) H 10/25/17 18:08 Magnesium 2.00 mg/dL (1.7-2.3) 10/25/17 18:08 Total Bilirubin 0.80 mg/dL (0.1-1.2) 10/25/17 18:08 AST < 5 units/L (5-40) L 10/25/17 18:08 ALT 61 units/L (7-56) H 10/25/17 18:08 Alkaline Phosphatase 109 units/L (35-129) 10/25/17 18:08 Total Creatine Kinase 740 units/L (55-170) H 10/27/17 05:42 CK-MB (CK-2) 3.7 ng/mL (0.0-4.0) 10/26/17 05:45 CK-MB (CK-2) Rel Index 0.3 (0-4) 10/26/17 05:45 Troponin T < 0.010 ng/mL (0.00-0.029) 10/26/17 05:45 Total Protein 7.5 g/dL (6.3-8.2) 10/25/17 18:08 Albumin 4.6 g/dL (3.9-5) 10/25/17 18:08 Albumin/Globulin Ratio 1.6 % 10/25/17 18:08 Triglycerides 364 mg/dL (2-149) H 10/26/17 05:45 Cholesterol 122 mg/dL (50-199) 10/26/17 05:45 LDL Cholesterol Direct 28 mg/dL (50-130) L 10/26/17 05:45 HDL Cholesterol 22 mg/dL (40-59) L 10/26/17 05:45 Cholesterol/HDL Ratio 5.54 % 10/26/17 05:45 TSH 0.543 mlU/mL (0.270-4.200) 10/26/17 14:00 Free T4 1.54 ng/dL (0.76-1.46) H 10/25/17 18:08 Urine Color Straw (Yellow) 10/25/17 22:35 Urine Turbidity Clear (Clear) 10/25/17 22:35 Urine pH 5.0 (5.0-7.0) 10/25/17 22:35 Ur Specific [place] 1.014 (1.003-1.030) 10/25/17 22:35 Urine Protein <15 mg/dl mg/dL (Negative) 10/25/17 22:35 Urine Glucose (UA) >=500 mg/dL (Negative) 10/25/17 22:35 Urine Ketones Neg mg/dL (Negative) 10/25/17 22:35 Urine Blood Mod (Negative) 10/25/17 22:35 Urine Nitrite Neg (Negative) 10/25/17 22:35 Urine Bilirubin Neg (Negative) 10/25/17 22:35 Urine Urobilinogen < 2.0 mg/dL (<2.0) 10/25/17 22:35 Ur Leukocyte Esterase Neg (Negative) 10/25/17 22:35 Urine WBC (Auto) 1.0 /HPF (0.0-6.0) 10/25/17 22:35 Urine RBC (Auto) 1.0 /HPF (0.0-6.0) 10/25/17 22:35 Salicylates < 0.3 mg/dL (2.8-20.0) L 10/25/17 18:08 Urine Opiates Screen Presumptive negative 10/25/17 22:35 Urine Methadone Screen Presumptive negative 10/25/17 22:35 Acetaminophen < 15.0 ug/mL (10.0-30.0) 10/25/17 18:08 Ur Barbiturates Screen Presumptive negative 10/25/17 22:35 Ur Phencyclidine Scrn Presumptive negative 10/25/17 22:35 Ur Amphetamines Screen Presumptive negative 10/25/17 22:35 U Benzodiazepines Scrn Presumptive negative 10/25/17 22:35 Urine Cocaine Screen Presumptive negative 10/25/17 22:35 U Marijuana (THC) Screen Presumptive negative 10/25/17 22:35 Drugs of Abuse Note Disclamer 10/25/17 22:35 Plasma/Serum Alcohol < 0.01 gm% (0-0.07) 10/25/17 18:08
--- NOTE | 2017-10-27 13:07 | Magnetic Resonance Report ---
MRI BRAIN WITH CONTRAST: 10/27/17 07:52:00 CLINICAL: Sphenoid mass by recent CT and MRI brain without contrast. TECHNIQUE: Coronal and axial postcontrast T1 sequences on a 1.5 Mariela magnet. 15.0 cc of Multihance was injected intravenously and consent was obtained prior to the administration of the contrast. FINDINGS: The previously identified sphenoid mass has a lobular shape and measures approximately 3.3 x 2.9 x 2.4 cm. A thin relatively smooth enhancing wall is identified postcontrast. The rest of the study is normal. The sinuses are otherwise clear. 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
--- NOTE | 2017-10-27 14:48 | Discharge Summary ---
<LASHAWN NICOLAS - Last Filed: 10/27/17 19:40> Providers - Providers Date of Admission: 10/25/17 22:31 Attending physician: LASHAWN NICOLAS 10/25/17 22:31 Occupational Therapy Evaluate and Treat [CONS] Routine Comment: Reason For Exam: Neuro deficits Physical Therapy Evaluation and Treat [CONS] Routine Comment: Reason For Exam: Neuro deficits 10/26/17 12:21 Consult to Physician [CONS] Routine Consulting Provider: LILLIAM GONZALEZ Reason For Exam: TIA Place consult to:: Dr. Gonzalez Notified:: Elda RN Phone number called:: Was contact made?: Yes Primary care physician: REGISTERED MEDICAL ASSISTANT Hospitalization Condition: Good Disposition: DC-01 TO HOME OR SELFCARE Exam - Constitutional Vitals: Temp Pulse Resp BP Pulse Ox 98.6 F 90 18 138/92 96 10/27/17 04:48 10/27/17 07:00 10/27/17 04:48 10/27/17 04:48 10/27/17 04:48 Plan Follow up with: [facility] [Provider Group] - 7 Days [facility] [Primary Care Provider] - 3-5 Days Prescriptions: Aspirin [Aspirin BABY CHEW TAB] 81 mg PO QDAY 30 Days tab.chew <HANDY GALEANO - Last Filed: 10/28/17 08:57> Providers - Providers Date of Admission: 10/25/17 22:31 Date of discharge: 10/27/17 Attending physician: LASHAWN NICOLAS 10/25/17 22:31 Occupational Therapy Evaluate and Treat [CONS] Routine Comment: Reason For Exam: Neuro deficits Physical Therapy Evaluation and Treat [CONS] Routine Comment: Reason For Exam: Neuro deficits 10/26/17 12:21 Consult to Physician [CONS] Routine Consulting Provider: LILLIAM GONZALEZ Reason For Exam: TIA Place consult to:: Dr. Gonzalez Notified:: Elda RN Phone number called:: Was contact made?: Yes Primary care physician: REGISTERED MEDICAL ASSISTANT Hospitalization Reason for admission: TIA Hospital course: Patient is a 46 years old with past medical history of hypertension, and diabetes woke up from sleep screaming, shaking his upper body and was confused and slurred speech. Patient was diagnosed with Transient ischemic attack, Sphenoid Mass,Confused and slurred speech,Hypertensive urgency/ emergency,Diabetes mellitus,Rhabdomyolysis/dehydration and Hyperlipidemia. 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 Patient confusion and slurred speech was from Transient ischemic attack. Patient currently alert and oriented to person,place, time and situation; no no neurological deficit. He was treated with IV fluid, antilipid agents, insulin and antihypertensive medications. Patient is clinically improved. Patient advised to follow-up with her primary care provider. Discharge Diagnosed Transient ischemic attack Sphenoid Mass Confused and slurred speech Hypertensive urgency/emergency Diabetes mellitus Rhabdomyolysis/dehydration Hyperlipidemia Time spent for discharge: 35 minutes Core Measure Documentation - Palliative Care Palliative Care/ Comfort Measures: Not Applicable - Core Measures Any of the following diagnoses?: none Exam - Constitutional Vitals: Temp Pulse Resp BP Pulse Ox 98.6 F 90 18 138/92 96 10/27/17 04:48 10/27/17 07:00 10/27/17 04:48 10/27/17 04:48 10/27/17 04:48 General appearance: Present: no acute distress - EENT Eyes: Present: PERRL ENT: hearing intact - Neck Neck: Present: supple - Respiratory Respiratory effort: normal Respiratory: bilateral: CTA - Cardiovascular Rhythm: regular Heart Sounds: Present: S1 & S2 - Abdominal General gastrointestinal: Present: soft, non-tender Male genitourinary: Present: deferred - Rectal Rectal Exam: deferred - Integumentary Integumentary: Present: clear, warm, dry - Musculoskeletal Musculoskeletal: strength equal bilaterally - Psychiatric Psychiatric: appropriate mood/affect - Neurologic Neurologic: moves all extremities - Allied Health Allied health notes reviewed: nursing Plan Diet: low fat, low cholesterol, low salt
--- NOTE | 2017-10-28 17:49 | Vascular Lab Report ---
CAROTID DUPLEX STUDY: RIGHT PSVEDV CCA [id number] CCA DIST:[id number] ICA PROX:[id number] ICA MID:[id number] ICA DIST:[id number] ECA: [id number] VERT: 38 14 LEFT PSVEDV CCA [id number] CCA DIST:[id number] ICA PROX:[id number] ICA MID:[id number] ICA DIST:[id number] ECA: [id number] VERT: 56 22 REASON FOR EXAM: Stroke. COMMENTS ON THE RIGHT: Doppler frequency analysis is consistent with 16 to 49 percent diameter reduction of the internal carotid artery. Minimal amount of plaque is seen. The common carotid artery is patent. The external carotid artery is patent. The vertebral artery has antegrade flow. COMMENTS ON THE LEFT: Doppler frequency analysis is consistent with 16 to 49 percent diameter reduction of the internal carotid artery. Minimal amount of plaque is seen. The common carotid artery is patent. The external carotid artery is patent. The vertebral artery has antegrade flow. IMPRESSION: Less than 50% diameter reduction in the internal carotid arteries bilaterally.
[2017-11-02] MEDS ORDERED: ALBIGLUTIDE 50 MG SQ SCH (10:00)
== END 2017-10-27 15:56 | disposition home or self-care (01) | DRG 69 ==
LOC: ED 17:36 → 4A 22:31
PROVIDERS: ADMIT Internal Medicine; ATTEND Internal Medicine
PROC: 3E0234Z Introduction of Serum, Toxoid and Vaccine into Muscle, Percutaneous Approach (ICD-10-PCS; principal; 2017-10-26)
DX: G45.9 Transient cerebral ischemic attack, unspecified (principal); I16.1 Hypertensive emergency; M62.82 Rhabdomyolysis; E11.9 Type 2 diabetes mellitus without complications; I16.0 Hypertensive urgency; E86.0 Dehydration; J34.1 Cyst and mucocele of nose and nasal sinus; E78.5 Hyperlipidemia, unspecified; Z82.49 Family history of ischemic heart disease and other diseases of the circulatory system; Z83.3 Family history of diabetes mellitus; Z23 Encounter for immunization
CPT/HCPCS: 36415; 70450; 70551; 70552; 71045; 80053; 80061; 80307; 80320; 81001; 82533; 82550; 82553; 82962; 83735; 84439; 84443; 84484; 85025; 85610; 85670; 85730; 90686; 93005; 93010; 93306; 93880; A9270-GY; A9577; G0480; J1650; J1815; J7030